=== PATIENT | male | born 1985 | race Caucasian/White ===

== ENCOUNTER 2019-09-15 16:48 | Inpatient (IN) ==
[2019-09-15] MEDS ORDERED: SEROQUEL PO PRN (19:48)
[2019-09-15] MEDS ORDERED: ZOFRAN ODT PO PRN (19:48)
[2019-09-15] MEDS ORDERED: SINEMET 25/100 PO PRN (19:48)
[2019-09-15] MEDS ORDERED: MOTRIN PO PRN (19:48)
[2019-09-15] MEDS ORDERED: PHENOBARBITAL IV PRN (19:48)
[2019-09-15] MEDS ORDERED: IMODIUM PO PRN (19:48)
[2019-09-15] MEDS ORDERED: BENTYL PO PRN (19:48)
[2019-09-15] MEDS ORDERED: ROBAXIN PO PRN (19:48)
[2019-09-15] MEDS ORDERED: TUBERSOL ID ONE (19:48)
[2019-09-15] MEDS ORDERED: LIBRIUM PO PRN (19:48)
[2019-09-15] MEDS ORDERED: TYLENOL PO PRN (19:48)
[2019-09-15] MEDS ORDERED: NICODERM PATCH TD PRN (19:48)
[2019-09-15] MEDS ORDERED: D5W 1,000 ML IV PRN (19:48)
[2019-09-15] MEDS ORDERED: SENOKOT PO PRN (19:48)
[2019-09-15] MEDS ORDERED: DULCOLAX PR PRN (19:48)
[2019-09-15] MEDS ORDERED: ATARAX PO PRN (19:48)
[2019-09-15] MEDS ORDERED: DESYREL PO PRN (19:48)
[2019-09-15] MEDS ORDERED: MAALOX PLUS LIQUID PO PRN (19:48)
[2019-09-15] MEDS ORDERED: ZOFRAN IV PRN (19:48)
[2019-09-15 20:29] LABS: HEMATOCRIT 39.6 % (42.0-52.0); HEMOGLOBIN 12.3 g/dL (14.0-18.0); MCH 30.1 PG (27-31); MCHC 31.1 g/dL (33-37); MCV 97.1 FL (81-99); MPV 9.7 FL (7.4-10.4); RBC 4.08 XMIL (4.7-6.1); WBC 5.54 X1000 (4.8-10.8)
[2019-09-15 20:35] LABS: INR 0.82; PROTIME 11.7 Seconds (11.0-16.0)
[2019-09-15 20:43] LABS: AMYLASE 43 U/L (20-200); LIPASE 17 U/L (13-60)
[2019-09-15 20:47] LABS: AGAP 9; ALBUMIN 3.8 g/dL (3.5-5.0); ALKALINE PHOSPHATASE 79 U/L (32-122); BUN 17 mg/dL (8-22); CALCIUM 8.7 mg/dL (8.8-10.2); CHLORIDE 105 mmol/L (98-107); COSMO 280; CREATININE 0.8 mg/dL (0.7-1.2); ESTIMATED GFR > 60; GLUCOSE 89 mg/dL (70-104); GOT 17 U/L (10-34); GPT 14 U/L (10-44); POTASSIUM 4.1 mmol/L (3.5-5.1); SODIUM 140 mmol/L (136-145); TCO2 27 mmol/L (25-35); TOTAL PROTEIN 6.6 g/dL (6.3-8.3)
--- NOTE | 2019-09-16 04:21 | HISTORY AND PHYSICAL ---
CHIEF COMPLAINT: Nausea, vomiting. HISTORY OF PRESENT ILLNESS: Patient is a 34-year-old male who presented to [facility] program secondary to nausea, vomiting, abdominal pain, myalgias, paresthesias, paroxysmal sweating. Notes that he has been abusing IV heroin and wants to get his life back under control. SOCIAL HISTORY: Patient is single. He currently is employed at [employer]. Lives in [place]. 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 ALLERGIES: Peanut allergy and penicillin. MEDICATIONS: No prescription medications. REVIEW OF SYSTEMS: CINA score is 15 secondary to nausea, vomiting, abdominal pain, myalgias, paresthesias, paroxysmal sweating. He has restless legs, unable to sit still, frequent hot and cold temperature changes, frequent cold chills. Has some nausea. Denies any true dry heaves. Denies any true fevers. Denies headaches, blurred vision, change in vision. Denies any focalized numbness, tingling or weakness in his extremities. SUBSTANCE ABUSE HISTORY: The patient has never been in treatment before. Does note that he has been missing work, has caused financial problems. Started drinking at 15, but has not drank in over a year. Started marijuana at 18, uses occasionally. Started stimulants at 32, has not used recently. Started opiates at age 29, currently started off with pills then progressed over the past 1-1/2 years to IV heroin. Started nicotine at 18, currently smokes half pack a day. FAMILY HISTORY: Noncontributory. PHYSICAL EXAMINATION: VITAL SIGNS: Reviewed. GENERAL: Patient is awake, alert, oriented. He is in no current respiratory distress. HEENT: Normocephalic. NECK: Supple. CARDIOVASCULAR: Regular rate. CHEST: Clear, nonlabored. ABDOMEN: Soft, nondistended. EXTREMITIES: Moves all extremities. NEUROLOGIC: No focal changes although he is jumpy and anxious. ASSESSMENT: 1. Nausea, vomiting. 2. Abdominal pain. 3. Myalgias. 4. Paresthesias. 5. Paroxysmal sweating. 6. Opiate abuse, withdrawal and stabilization. PLAN: We are going to admit patient to the hospital. Continue education and counseling. Discussed with patient switching to Suboxone and discussed risks and benefits. cc: Samy Herbert MD
[2019-09-16] MEDS: PROTONIX PO SCH (06:06)
[2019-09-16] MEDS: VITAMIN B-1 PO SCH (10:04)
[2019-09-16] MEDS: THERA M PLUS PO SCH (10:04)
[2019-09-16] MEDS: FOLIC ACID PO SCH (10:04)
[2019-09-16 10:39] LABS: URINE SOURCE CLEAN CATCH
[2019-09-16 10:58] LABS: BILIRUBIN URINE NEGATIVE (NEGATIVE); BLOOD URINE NEGATIVE (NEGATIVE); COLOR YELLOW; GLUCOSE URINE NEGATIVE (NEGATIVE); KETONE URINE NEGATIVE (NEGATIVE); LEUKOCYTES URINE NEGATIVE (NEGATIVE); NITRITE URINE NEGATIVE (NEGATIVE); PH URINE 6.5; PROTEIN URINE NEGATIVE (NEGATIVE); SP GRAVITY URINE 1.015; TURBIDITY URINE CLEAR (CLEAR); UR EPITHELIAL CELLS <10 /HPF (<10); URINE BACTERIA NEGATIVE /HPF; URINE RBC <10 /HPF (<10); URINE WBC <10 /HPF (<10); UROBILINOGEN URINE NORMAL (NORMAL)
[2019-09-16 11:07] LABS: UR AMPHETAMINES QUAL PRESUMPTIVE POSITIVE (NONE DETECT); UR BARBITUATES QUAL NONE DETECTED (NONE DETECT); UR BENZODIAZEPIN QUAL PRESUMPTIVE POSITIVE (NONE DETECT); UR CANNABINOIDS QUAL PRESUMPTIVE POSITIVE (NONE DETECT); UR COCAINE QUAL NONE DETECTED (NONE DETECT); UR METHADONE QUAL NONE DETECTED (NONE DETECT); UR METHAMPHETAMINE QUAL PRESUMPTIVE POSITIVE (NONE DETECT); UR OPIATES QUAL PRESUMPTIVE POSITIVE (NONE DETECT); UR OXYCODONE QUAL NONE DETECTED (NONE DETECT); UR PCP QUAL NONE DETECTED (NONE DETECT); UR PROPOXYPHENE QUAL NONE DETECTED (NONE DETECT); UR TCA QUAL PRESUMPTIVE POSITIVE (NONE DETECT)
[2019-09-16] MEDS: SUBOXONE 2 MG/0.5 MG FILM SL SCH ×2 (12:35→23:37)
--- NOTE | 2019-09-16 19:25 | PROGRESS NOTE ---
DATE: 09/16/2019 SUBJECTIVE: Patient notes that overall he feels terrible but actually improved, less muscle aches, no sweating. Denies any fevers or chills currently. PHYSICAL EXAMINATION: Vital Signs: Temp 97.5, pulse is 73, respiratory rate 18, BP 140/86. General: Patient is in no current respiratory distress. He is lying in bed. HEENT: Normocephalic. Neck: Supple. Cardiovascular: Regular rate. Chest: Clear. Abdomen: Soft. Extremities: Moves all extremities. Skin: Warm dry no rashes. ASSESSMENT: 1. Nausea and vomiting, abdominal pain, myalgias, paresthesias. 2. Paroxysmal sweating. 3. Opiate abuse withdrawal and stabilization. PLAN: We will continue the patient in the hospital. Continue to follow further orders as needed. Continue Suboxone. cc: Samy Herbert MD
[2019-09-17] MEDS: PROTONIX PO SCH (06:03)
[2019-09-17] MEDS: VITAMIN B-1 PO SCH (08:42)
[2019-09-17] MEDS: FOLIC ACID PO SCH (08:42)
[2019-09-17] MEDS: THERA M PLUS PO SCH (08:42)
[2019-09-17] MEDS: SUBOXONE 2 MG/0.5 MG FILM SL SCH ×2 (11:55→23:04)
--- NOTE | 2019-09-17 18:37 | PROGRESS NOTE ---
DATE: 09/17/2019 SUBJECTIVE: Patient notes that he is feeling bad, but is feeling a little bit better. Denies any current abdominal pain. He states his nausea is improved. His myalgias appears to be improving. He has no more tremors. Paresthesias have resolved. PHYSICAL EXAMINATION: Vital Signs: Reviewed. Temperature 97 degrees, pulse 66, respiratory rate 18, BP 123/79. General: Patient is pleasant. He is in no respiratory distress. HEENT: Normocephalic. Neck: Supple. Cardiovascular: Regular rate. Chest: Clear. Abdomen: Soft. Extremities: Moves all extremities. Neuro: No changes. ASSESSMENT: 1. Nausea and vomiting. 2. Abdominal pain. 3. Paresthesias. 4. Paroxysmal sweating. 5. Opiate abuse withdrawal and stabilization. PLAN: We are going to continue the patient in the hospital. Continue Suboxone at 4 mg twice daily. We will continue to follow. Continue counseling. Further orders as needed. cc: Samy Herbert MD
[2019-09-18] MEDS: PROTONIX PO SCH (06:21)
[2019-09-18] MEDS ORDERED: SUBOXONE 2 MG/0.5 MG FILM SL SCH (09:00)
[2019-09-18] MEDS: FOLIC ACID PO SCH (09:10)
[2019-09-18] MEDS: VITAMIN B-1 PO SCH (09:10)
[2019-09-18] MEDS: THERA M PLUS PO SCH (09:10)
[2019-09-18 11:22] VITALS: BP 138/86
--- NOTE | 2019-09-19 10:44 | DISCHARGE SUMMARY ---
ADMISSION DATE: 09/15/2019 DISCHARGE DATE: 09/18/2019 DISCHARGE DIAGNOSES: 1. Nausea. 2. Vomiting. 3. Abdominal pain. 4. Myalgias. 5. Paresthesias. 6. Opiate abuse withdrawal and stabilization. CONSULTATIONS: None. PROCEDURES: None. BRIEF HOSPITAL COURSE: The patient is a 34-year-old male who presented to [facility] program secondary to nausea, vomiting, abdominal pain, myalgias, paresthesias. Thankfully, continued to improve. On discharge he is awake, alert. He is in no distress. He is tolerating 4 mg of Zofran, 4 mg of Suboxone without any difficulty. He is awake, alert, oriented. DISPOSITION: Patient will be discharged home. He will follow up outpatient with treatment facility of choice. Discussed with him that he needs outpatient life counseling as well as drug counseling. He needs to avoid situations, persons, places that encourage him to make bad choices. He will be discharged with Suboxone 4 mg twice daily. cc: Samy Herbert MD
== END 2019-09-18 12:33 | disposition home or self-care (01) | DRG 897 ==
LOC: P.DIRADM 18:07 → P.MEDSURG 18:24
PROVIDERS: ADMIT Family Medicine; ATTEND Family Medicine